=== PATIENT | female | born 1945 | race Caucasian/White ===

== ENCOUNTER → 2017-08-16 | Day surgery (SDC) | payer OTHER ==
[~2017-08-16] MED LIST: AVAPRO150 MG PO; EVISTA60 MG PO; VITAMIN D10000 UNIT PO; ZOCOR5 MG PO
== END | disposition home or self-care (01) ==
LOC: CIR.AMB 10:16
DX: S22.088A Other fracture of T11-T12 vertebra, initial encounter for closed fracture (principal); S32.018A Other fracture of first lumbar vertebra, initial encounter for closed fracture